=== PATIENT | female | born 1990 | race Caucasian/White ===

== ENCOUNTER 2018-06-06 15:59 | Emergency (ER) | payer OTHER ==
[~2018-06-06] VITALS: Ht 162.6 cm; Wt 58.1 kg
[2018-06-06 17:15] VITALS: BP 108/78
[2018-06-07 10:10] LABS: HEPATITIS B SURFACE AG Negative (Negative); HIV-1/HIV-2 ANTIBODY Non Reactive (Non Reactive)
== END 2018-06-06 17:16 | disposition home or self-care (01) ==
LOC: M.ERS 15:59
PROVIDERS: Nurse Practitioner Family
DX: S61.431A Puncture wound without foreign body of right hand, initial encounter (principal); W27.3XXA Contact with needle (sewing), initial encounter; Y93.89 Activity, other specified; Y92.89 Other specified places as the place of occurrence of the external cause; Y99.8 Other external cause status